=== PATIENT | female | born 1960 | race Hispanic/Latino ===

== ENCOUNTER 2018-05-27 05:55 | Day surgery (SDC) | payer BC ==
[2018-05-23 08:51] VITALS: RESP 18
[2018-05-23 09:00] VITALS: BMI 27.3
[2018-05-27] MEDS ORDERED: Lactated Ringer's 1,000 ML IV ONE (06:47)
[2018-05-27] MEDS ORDERED: Bupivacaine 0.5% Inj(30mL) IJ ONE (07:01)
--- NOTE | 2018-05-27 07:03 | CP.SDSHP ---
<Radha Noble - Last Filed: 05/27/18 07:03> Same Day Surgery H & P - History Proposed Procedure: Left ankle cyst removal Pre-Op Diagnosis: Left ankle cyst - Previous Medical/Surgical History Pain: 4.Moderate Pain - Allergies Allergies: Allergies No Known Allergies Allergy (Verified 05/27/18 06:23) - Physical Exam Vital Signs: Vital Signs 05/27/18 06:54 Pulse Rate 51 L Neuro: WNL - {Optional Preform as Required} Integument: WNL - Impression Pt. Evaluated Today:Candidate for Anesthesia & Procedure: Yes Short Stay Discharge - Short Stay Discharge Admitting Diagnosis/Reason for Visit: M67.472 Disposition: HOME/ ROUTINE Referrals: Indio Paulino MD [Primary Care Provider] - Additional Instructions (Diet, Activity): -Patient in good/stable condition for discharge home -Pt to resume medications per medical reconciliation -Resume regular diet -Please keep dressing clean, dry, & intact to surgical site -Use plastic bag over bandage for showering -Wear post op shoe at all times when ambulating -Call clinic if you see signs of infection (redness, swelling, malodor) -Please make an appointment to see Dr. Myers in office/clinic within 1 week for post-op check <Angelito Phelan - Last Filed: 05/27/18 12:43> Same Day Surgery H & P - Allergies Allergies: Allergies No Known Allergies Allergy (Verified 05/27/18 06:23) - Physical Exam Vital Signs: Vital Signs 05/27/18 05/27/18 05/27/18 06:54 08:45 09:00 Temperature 97.2 F L Pulse Rate 51 L 57 L 52 L Respiratory 18 18 Rate Blood Pressure 129/73 134/83 O2 Sat by Pulse 100 100 Oximetry 05/27/18 05/27/18 05/27/18 09:15 09:30 10:00 Temperature Pulse Rate 50 L 53 L 56 L Respiratory 18 18 18 Rate Blood Pressure 128/80 111/78 120/75 O2 Sat by Pulse 100 100 100 Oximetry 05/27/18 05/27/18 05/27/18 10:15 10:30 11:05 Temperature 97.2 F L 98.7 F Pulse Rate 51 L 56 L Respiratory 18 18 Rate Blood Pressure 132/81 139/87 O2 Sat by Pulse 97 97 99 Oximetry 05/27/18 12:17 Temperature 98.3 F Pulse Rate 59 L Respiratory 18 Rate Blood Pressure 126/71 O2 Sat by Pulse 96 Oximetry Short Stay Discharge - Short Stay Discharge Progress Note/Discharge Note with Instructions: - Patient evaluated bedside in recovery - After surgical procedure patient in NAD - (+) Void, (+) Appetite - Capillary refill time <3s and NVS intact. - Patient denies complaints at this time. - Post operative instructions and plan of care explained to patient at length. - Patient. acknowledges verbal understanding. - Patient stable for DC per podiatric surgery
[2018-05-27] MEDS ORDERED: ceFAZolin IV 1 gm in Dextrose 1 GM/50 ML BAG IVPB ONE (07:15)
[2018-05-27] MEDS ORDERED: Sodium Chloride 0.9% 1,000 ML IV SCH (07:15)
[2018-05-27] MEDS ORDERED: ceFAZolin IV 1 gm in Dextrose 2 GM/100 ML BAG IVPB ONE (07:18)
[2018-05-27] MEDS ORDERED: Lidocaine 1% Inj (20ml) ONE (07:18)
[2018-05-27] MEDS ORDERED: Bupivacaine 0.5% Inj(30mL) ONE (07:18)
--- NOTE | 2018-05-27 07:27 | CP.PCM.PN ---
Subjective - Date & Time of Evaluation Date of Evaluation: 05/27/18 Time of Evaluation: 07:19 - Subjective Subjective: Podiatry progress note for attending Dr. Myers: 57 y/o F patient with PMH of Ulcerative colitis seen and evaluated preoperatively for preoperatively for excision of L ankle mass. Patient states she she started to have this mass since the beginning of this year. Patient states that the mass grows bigger in size. She states that it's painful when she moves her ankle. She states that she had mass in her otrher ankle in 2009 which was excised by DR. Myers, sent to pathology and came back as benign mass. She states that she is aware with todays surgery. She confirmed her fasting status. Patient denies any recent N/V/F/SOB/CP. PMH: Ulcerative colitis PSH: R knee arthroscpy. R ankle mass excision. Hysterectomy. Ovarian cystectomy. Allergies: NKDA Social Hx: Denies smoking, EtOH, or Illicit drug use. Objective - Vital Signs/Intake and Output Vital Signs (last 24 hours): Temp Pulse Resp BP Pulse Ox 98.4 F 51 L 18 118/76 95 05/23/18 08:50 05/27/18 06:54 05/23/18 08:50 05/23/18 08:50 05/23/18 08:50 - Medications Medications: Current Medications Cefazolin Sodium/Dextrose (Ancef Iv 1 Gm Duplex) 1 gm in 50 mls @ 50 mls/hr IV PB ONCE ONE; Protocol Stop: 05/27/18 08:14 Sodium Chloride (Sodium Chloride 0.9%) 1,000 mls @ 0 mls/hr IV .Q0M YOJANA Stop: 05/28/18 07:02 - Constitutional Appears: Well, Non-toxic, No Acute Distress - Head Exam Head Exam: ATRAUMATIC, NORMOCEPHALIC - Extremities Exam Additional comments: L LE Focused exam: Vasc: DP/PT pulses 2/4 b/l, cap refill <3 seconds to all digits; temp gradient Warm to cool from proximal to distal. Neuro: gross and protective sensation WNL. Derm: No open lesions or wounds present, No clinical signs of infection MSK: A soft tissue mass present on the lateral aspect of the left ankle. No pain on palpating the mass. Pain at the mass with Inversion/eversion ROM. Muscle power intact 5/5 to all groups. - Neurological Exam Neurological Exam: Alert, Awake, Oriented x3 - Psychiatric Exam Psychiatric exam: Normal Affect, Normal Mood Assessment and Plan - Assessment and Plan (Free Text) Assessment: 57 y/o F seen and evaluated in the SDS preoperatively for excision of L ankle mass. Plan: patient was seen and examined in SDS patient NPO status was confirmed All pre-op testing and clearance in chart patient has exhausted all conservative treatment at this time and is opting for surgical intervention patient was explained procedure and post-operative course All patient's questions were answered to satisfaction No guarantees were made Pt understands all risks, benefits and complications of procedure Pt will follow-up with Dr. Myers within 1 week of surgery
[2018-05-27] MEDS ORDERED: Midazolam 2 MG/2 ML VIAL ONE (07:59)
[2018-05-27] MEDS ORDERED: Propofol 10 mg/ml Inj (20 ML) ONE (07:59)
[2018-05-27] MEDS ORDERED: Bupivacaine 0.5% 50 ML IJ ONE (08:14)
[2018-05-27] MEDS ORDERED: Dexamethasone 4 mg/1 ml ONE (08:17)
[2018-05-27] MEDS ORDERED: Dexamethasone 4 mg/1 ml IM ONE (08:32)
--- NOTE | 2018-05-27 08:50 | PCM.SURG1 ---
Surgeon's Initial Post Op Note - Surgeon's Notes Surgeon: Dr. Myers Furnace Keeper: Murray Ward PGY-2, Radha Noble PGY-1 Type of Anesthesia: IV Sedation, Local Anesthesia Administered By: Dr. Rene Pre-Operative Diagnosis: left ankle cyst Operative Findings: see dictation. materials: 4-0 vicryl, 4-0 nylon. injectables: 18 cc of 0.5% marcaine plain. 1cc of dexamethasone Post-Operative Diagnosis: same Operation Performed: exicision of left ankle cyst Specimen/Specimens Removed: left ankle cyst/lipoma Estimated Blood Loss: EBL {In ML}: 1 Blood Products Given: N/A Drains Used: No Drains Post-Op Condition: Good Date of Surgery/Procedure: 05/27/18 Time of Surgery/Procedure: 07:45
[2018-05-27] MEDS ORDERED: Oxycodone/Acetaminophen 5/325 mg Tab PO PRN ×2 (08:55)
[2018-05-27] MEDS ORDERED: Lactated Ringer's 1,000 ML IV SCH (09:00)
[2018-05-27 12:19] VITALS: BP 126/71; PULSE 59; TEMP 98.3; O2SAT 96
--- NOTE | 2018-05-27 23:05 | PCM.OP ---
Operative Report - Operative Report Date of Surgery/Procedure: 05/27/18 Time of Surgery/Procedure: 07:45 Surgeon: Dr. Vance Myers DPM Oriental Rug Repairer: Dr. Murrya BHAGATM PGY-2, Dr. Radha Wolfe PGY-1 Anesthesia/Sedation: Dr. Rene - IV sedation and local Pre-Operative Diagnosis: left ankle cyst Post-Operative Diagnosis: left ankle cyst/lipoma Indication for Surgery: Indications: The patient is a 57 year-old female with the above diagnoses. Patient represent with a painful left ankle palpable cyst at the anterior lateral aspect of the ankle just inferior to the lateral malleolus. Patient reports that the soft tissue mass has become increasing painful, worse with prolong standing, ambulating and pressure. The patient has exhausted all conservative treatment at this time and now requires surgical intervention. The patient signed the consent after careful explanation of risks, benefits, complication and alternatives for surgical procedure. No guarantees were given nor implied. NPO status was confirmed prior to taking patient to the OR. 1g IV of Ancef was given preoperatively prior to procedure. Operative Findings: see procedure note below Procedure/Operation Description: Preparation: The patient was brought in to the operating room and placed on the operating room table in a supine position. Timeout was performed for identification of the correct patient and procedure. A well-padded pneumatic ankle tourniquet was placed to the patient'sleft ankle in a supramalleolar position. After IV sedation is administered, a local injection consisting of 18 cc of 0.5% marcaine plain was introduced in a local block fashion to the left ankle cyst located on the inferior anterior lateral aspect of lateral maelloleus. The left foot ankle ankle was then prepped and draped in normal sterile manner and the procedure began. Esmarch was utilized to exsanguinate the patient's Left foot and ankle. Pneumatic high ankle tourniquet was then inflated to 250 mmHg to the left lower extremity and procedure began. Procedure: Attention was directed to anterior lateral aspect of the left ankle, just inferior to the lateral malleolus where a lazy S curvilinear incision was made measuring approximately 3cm in length over the palpable mass. Please note that the cyst was outlined with a skin marker prior to making the incision. Using blunt dissection, the dissection was continued down to deep subcutaneous tissue layer. During this time the soft tissue mass was visualized. It should be noted that care was taken to identify and retract all vital neurovascular structures. All bleeders were cauterized and ligated as necessary. Upon dissection, the soft tissue mass had characteristic with lipoma and measuring approximately 2.5 cm in diameter. Carefully, using blunt dissection, the soft tissue mass was excised and passed from the operative field and sent to pathology for evaluation. Wound was irrigated with copious amounts of sterile normal saline. The subcuticular tissue was then coapted and reapproximated using a # 4-0 Vicryl. Then skin was then reapproximated and coapted using 4-0 Nylon in a horizontal type stitch. Next, 1 cc of dexamethasone was given in a local block fashion to surgical site. Surgical site was then dressed with gauze, cling, and light coban. Estimated Blood Loss: < 5 cc Complications: none Specimen: left ankle cyst/lipoma Discharge & Condition: Postoperative Condition: The patient tolerated the anesthesia and procedure well and was escorted to the recovery room with vital signs stable and neurovascular status intact to left lower extremity. Patient will follow up with Dr. Myers in office within 1 week.
== END 2018-05-27 12:50 | disposition home or self-care (01) ==
LOC: H.OPSURG 05:55
PROVIDERS: ATTEND Podiatrist Foot & Ankle Surgery
DX: M67.472 Ganglion, left ankle and foot (principal); F32.9 Major depressive disorder, single episode, unspecified; D17.24 Benign lipomatous neoplasm of skin and subcutaneous tissue of left leg; K51.90 Ulcerative colitis, unspecified, without complications
CPT/HCPCS: 11400; 12031; 88304; J0690; J1100; J2001; J2250; J2405; J2704; J3010; J7030; J7120